=== PATIENT | female | born 1965 | race Caucasian/White ===

== ENCOUNTER 2019-08-12 07:22 | Inpatient (IN) ==
--- NOTE | 2019-07-29 10:05 | EKG Report ---
Test Performed on : 07/29/2019 10:03:17 AM Test Reason : PAT Blood Pressure : / mmHG Vent. Rate : 077 BPM Atrial Rate : 077 BPM P-R Int : 142 ms QRS Dur : 074 ms QT Int : 346 ms P-R-T Axes : 068 067 071 degrees QTc Int : 391 ms Normal sinus rhythm. Possible Left atrial enlargement Borderline ECG No previous ECGs available Confirmed by Antony BERNARDO, Chente Best ([id number]) on 07/30/2019 12:23:04 PM
[2019-07-29 10:17] LABS: URINE SOURCE CLEAN CATCH
[2019-07-29 10:35] LABS: BASO# 0.13 X1000 (0.0-0.2); BASO% 1.8 % (0.0-0.8); EOS# 0.44 X1000 (0.0-0.7); EOS% 6.2 % (0.0-10.0); HEMATOCRIT 46.1 % (37.0-47.0); HEMOGLOBIN 15.3 g/dL (12.0-16.0); IMM GRAN# 0.02 X1000 (0.0-0.04); IMM GRAN% 0.3 % (0.0-0.5); LYMPH% 36.7 % (20.5-51.1); MCH 28.1 PG (27-31); MCHC 33.2 g/dL (33-37); MCV 84.7 FL (81-99); MONO# 0.36 X1000 (0.11-0.59); MONO% 5.1 % (1.7-9.3); MPV 10.4 FL (7.4-10.4); NEUT# 3.53 X1000 (1.4-6.5); NEUT% 49.9 % (42.2-75.2); PLT 273 X1000 (130-400); RBC 5.44 XMIL (4.2-5.4); RDW 13.4 % (11.5-14.5); WBC 7.08 X1000 (4.8-10.8)
[2019-07-29 10:37] LABS: BILIRUBIN URINE NEGATIVE (NEGATIVE); BLOOD URINE SMALL (NEGATIVE); COLOR YELLOW; GLUCOSE URINE NEGATIVE (NEGATIVE); KETONE URINE NEGATIVE (NEGATIVE); LEUKOCYTES URINE LARGE (NEGATIVE); NITRITE URINE NEGATIVE (NEGATIVE); PROTEIN URINE TRACE mg/dL (NEGATIVE); TURBIDITY URINE HAZY (CLEAR); UROBILINOGEN URINE NORMAL (NORMAL)
[2019-07-29 10:52] LABS: INR 0.91; PROTIME 12.3 Seconds (11.0-16.0); PTT 28.3 Seconds (22.3-41.8)
[2019-07-29 11:14] LABS: HEMOGLOBIN A1C 5.5 % (4.8-6.0)
[2019-07-29 11:17] LABS: UR EPITHELIAL CELLS <10 /HPF (<10); URINE BACTERIA 1+ /HPF; URINE RBC <10 /HPF (<10); URINE WBC TNTC /HPF (<10); URINE YEAST NONE SEEN
[2019-07-29 11:18] LABS: URINE SMALL ROUND CELLS RENAL PRESENT
[2019-07-29 11:31] LABS: AGAP 13; ALBUMIN 4.5 g/dL (3.5-5.0); BUN 9 mg/dL (8-22); CALCIUM 9.6 mg/dL (8.8-10.2); CHLORIDE 101 mmol/L (98-107); COSMO 278; CREATININE 0.9 mg/dL (0.5-0.9); ESTIMATED GFR > 60; GLUCOSE 103 mg/dL (70-104); POTASSIUM 4.3 mmol/L (3.5-5.1); SODIUM 140 mmol/L (136-145); TCO2 26 mmol/L (25-35)
[2019-08-12] MEDS ORDERED: DIPRIVAN 1% ONE ×2 (07:42→08:34)
[2019-08-12] MEDS ORDERED: FENTANYL ONE (07:44)
[2019-08-12] MEDS ORDERED: COLACE ONE (07:46)
[2019-08-12] MEDS ORDERED: LYRICA ONE (07:46)
[2019-08-12] MEDS ORDERED: REGLAN ONE (07:46)
[2019-08-12] MEDS ORDERED: PEPCID ONE (07:46)
[2019-08-12] MEDS ORDERED: KEFZOL 1 GM/D5W 1 GM/50 ML IVPB ONE (07:47)
[2019-08-12] MEDS ORDERED: LR 1,000 ML ONE (07:47)
[2019-08-12] MEDS ORDERED: VERSED ONE (07:47)
[2019-08-12] MEDS ORDERED: TRANSDERM-SCOP ONE (07:48)
[2019-08-12] MEDS ORDERED: VALIUM ONE (07:54)
[2019-08-12] MEDS ORDERED: DURAMORPH ONE (09:20)
[2019-08-12] MEDS ORDERED: CYKLOKAPRON 1,000 MG/NS 1,000 MG/100 ML IVPB ONE ×2 (09:20→09:21)
[2019-08-12] MEDS ORDERED: SENSORCAINE 0.25%/EPI 1:200,000 ONE (09:20)
[2019-08-12] MEDS ORDERED: TORADOL ONE (09:20)
[2019-08-12] MEDS ORDERED: VANCOMYCIN ONE (09:20)
[2019-08-12] MEDS ORDERED: SODIUM CHLORIDE 0.9% ONE (09:20)
[2019-08-12] MEDS ORDERED: EXPAREL 1.3% ONE (09:21)
[2019-08-12] MEDS ORDERED: NEOSPORIN G.U. IRRIGANT ONE (09:21)
[2019-08-12] MEDS ORDERED: DECADRON ONE (10:26)
[2019-08-12] MEDS ORDERED: ZOFRAN ONE (10:26)
[2019-08-12] MEDS ORDERED: OFIRMEV 1000 MG/ISOTONIC SOLN 1,000 MG/100 ML BOTTLE ONE (10:26)
[2019-08-12 10:45] LABS: URINE SOURCE CATH
[2019-08-12 10:54] LABS: BILIRUBIN URINE NEGATIVE (NEGATIVE); BLOOD URINE NEGATIVE (NEGATIVE); COLOR YELLOW; GLUCOSE URINE NEGATIVE (NEGATIVE); KETONE URINE NEGATIVE (NEGATIVE); LEUKOCYTES URINE NEGATIVE (NEGATIVE); NITRITE URINE NEGATIVE (NEGATIVE); PROTEIN URINE NEGATIVE (NEGATIVE); SP GRAVITY URINE 1.011; TURBIDITY URINE CLEAR (CLEAR); UROBILINOGEN URINE NORMAL (NORMAL)
[2019-08-12 10:55] LABS: UR EPITHELIAL CELLS <10 /HPF (<10); URINE BACTERIA NEGATIVE /HPF; URINE RBC <10 /HPF (<10); URINE WBC <10 /HPF (<10)
[2019-08-12] MEDS ORDERED: EPHEDRINE ONE (11:01)
[2019-08-12] MEDS ORDERED: MORPHINE IV PRN ×3 (12:30)
[2019-08-12] MEDS ORDERED: ZOFRAN PO PRN (12:30)
[2019-08-12] MEDS ORDERED: OXY IR PO PRN ×2 (12:30)
[2019-08-12] MEDS ORDERED: NS 1,000 ML ONE (12:35)
--- NOTE | 2019-08-12 12:51 | OPERATIVE NOTE ---
PROCEDURE DATE: 08/12/2019 PREOPERATIVE DIAGNOSIS: Degenerative arthritis, left knee. POSTOPERATIVE DIAGNOSIS: Degenerative arthritis, left knee. PROCEDURE PERFORMED: Left total knee arthroplasty with DePuy Attune size 5 narrow posterior stabilized femur, size 4 tibial tray, 7 mm rotating platform tibial insert, and a 32 mm medialized anatomic patella. SURGEON: Nilesh Sahni M.D. MEDICAL WRITER: Holly Medina, who was necessary for proper retraction, manipulation of extremity, and improved efficiency during the case. [employer] SUPERVISOR: Edward Harrison RN. ANESTHESIA: Spinal. IV FLUIDS: 1600 mL of lactated Ringer's. BLOOD LOSS: 35 mL. TOURNIQUET TIME: 80 minutes at 300 mmHg. COMPLICATIONS: None. INDICATION: The patient is a pleasant, 53-year-old female with a chronic history of pain and discomfort of the left knee. Continued pain and discomfort, and her pain is progressive and affects her activities of daily living. Radiographic studies reveal findings consistent with osteoarthritis. Given the patient's continued pain and discomfort, recommendation to proceed with left total knee arthroplasty was offered. Risks and benefits of surgery were explained, including the risks of anesthesia, , bleeding, infection, failure to relieve pain, postoperative stiffness, nerve injury, blood clots, and other imponderables. All questions were answered. The patient wishes to proceed with surgery. DETAILS OF OPERATION: The patient was taken to the operating room and underwent spinal anesthesia. After adequate anesthesia was obtained, she was placed supine on the operating table. The left lower extremity was subsequently prepped and draped in the usual sterile fashion. An Esmarch was used to exsanguinate the left lower extremity. The tourniquet was inflated to 300 mmHg. A standard anterior incision was made with a skin knife. Medial and skin envelopes were developed. Standard medial parapatellar arthrotomy was then performed. Patella fat pad was then excised. Retractor was then placed. Approximately 1 cm anterior to the PCL insertion, a starting reamer was passed. Intramedullary guide with a distal femoral cutting block was pinned in position. Distal femoral cut was then performed in standard fashion. A sizing block was then placed and measured a size 5. A size 5 cutting block was pinned in position. Anterior, posterior, and chamfer cuts were then made. Attention was then turned to the proximal tibia, where using the extramedullary guide, the proximal tibia cutting block was pinned in position, and good alignment confirmed with the alignment nancy. The proximal tibia was then resected. Medial and lateral menisci were excised. A spacer block was then placed and had good soft tissue balance in both flexion and extension. A size 4 tibial tray appeared to be the correct size. This was pinned in position. This was followed by a central reamer and a fin punch. A box cutting guide was pinned on the distal femur. A box cut was then performed. After this had been performed, a trial femoral component was then placed, and 2 lug holes were drilled. A trial tibial insert was then placed and had good soft tissue balancing. The patella was everted and resected in standard fashion. Patella size 35 appeared to be the correct size. Three holes were drilled. The trial patella component was then placed and was carried through range of motion. It had good range of motion, good soft tissue balancing, and good patellofemoral tracking. After this had been performed, the wound was copiously irrigated with antibiotic pulsatile lavage, while vancomycin was mixed in the cement on the back table. Sequential cementing was then performed, first with the tibial tray, and excess cement was removed with a [place], followed by the femoral component, and excess cement was removed with a [place], followed by trial tibial insert in full extension and axial loading was maintained while the cement cured. The patella was cemented in standard fashion. Patella clamp was placed. While the cement was curing, Exparel was placed in the deep soft tissue as well as the subcutaneous tissue. After the cement had cured, peripheral cement was removed with a small osteotome. The 7 mm rotating platform tibial insert appeared to be the correct size. The trial insert was removed. Exparel was placed in the deep posterior capsule. The wound was copiously once again with antibiotic pulsatile lavage. A 7 mm rotating platform tibial insert was then placed. The knee was then carried through range of motion. It had good range of motion, good soft tissue balancing, and good patellofemoral tracking. A 1/8 Hemovac drain was placed and was not sewn in. Final irrigation was then performed with antibiotic pulsatile lavage. Then, #1 Vicryl was used to prepare the arthrotomy, followed by 2-0 Vicryl to repair the subcutaneous tissue, and skin partha. Adaptic, sterile 4 x 4's, Webril, cryo unit, and Sandeep wrap were applied to the right lower extremity. The patient tolerated the procedure well, and was transferred to the recovery room in stable condition. cc: Nilesh Sahni MD
--- NOTE | 2019-08-12 12:56 | Diag Imaging Result Doc PS360 ---
KNEE 1-2 VIEWS-LEFT - 08/12/2019 INDICATION: post op total knee TECHNIQUE: Two views COMPARISON: None FINDINGS: There has been left total knee arthroplasty with patellar resurfacing. No hardware fracture or loosening. Alignment is anatomic. IMPRESSION: No complication. Electronically signed by Hong Emery 08/12/2019 12:54 PM
[2019-08-12] MEDS: TYLENOL PO SCH (17:16)
[2019-08-12] MEDS: KEFZOL 1 GM/D5W 1 GM/50 ML IVPB IV SCH (17:16)
[2019-08-12] MEDS: COLACE PO SCH (21:04)
[2019-08-12] MEDS: PERIDEX MT SCH (21:05)
[2019-08-13] MEDS: TYLENOL PO SCH ×3 (00:19→12:23)
[2019-08-13] MEDS: NS 1,000 ML IV SCH ×2 (00:20→02:20)
[2019-08-13] MEDS: KEFZOL 1 GM/D5W 1 GM/50 ML IVPB IV SCH (02:20)
--- NOTE | 2019-08-13 06:47 | ORTHOPAEDICS PROGRESS NOTE ---
DATE: 08/13/2019 SUBJECTIVE: The patient is a pleasant 53-year-old female who is 1 day status post left total knee arthroplasty. She is currently resting comfortably. PHYSICAL EXAMINATION: The patient's right lower extremity wound looks good. There are no signs or symptoms of infection. Calf is soft. She has active dorsiflexion plantar flexion. She was able to ambulate with Physical Therapy yesterday. LABORATORY: Her labs are pending. IMPRESSION: Postoperative day #1 status post right total knee arthroplasty. PLAN: At this point, patient can be discharged home after physical therapy. She will follow up in the office in 10 to 14 days. I will see her and we will arrange for outpatient physical therapy. cc: Nilesh Sahni MD
[2019-08-13] MEDS ORDERED: LINZESS PO SCH ×2 (07:00→09:00)
[2019-08-13 07:25] LABS: HEMATOCRIT 36.1 % (37.0-47.0); HEMOGLOBIN 11.9 g/dL (12.0-16.0)
[2019-08-13 07:28] VITALS: BP 94/72
[2019-08-13 08:00] LABS: AGAP 11; BUN 12 mg/dL (8-22); CALCIUM 8.8 mg/dL (8.8-10.2); CHLORIDE 107 mmol/L (98-107); COSMO 280; CREATININE 0.7 mg/dL (0.5-0.9); ESTIMATED GFR > 60; GLUCOSE 116 mg/dL (70-104); POTASSIUM 4.1 mmol/L (3.5-5.1); SODIUM 140 mmol/L (136-145); TCO2 22 mmol/L (25-35)
[2019-08-13] MEDS: PERIDEX MT SCH (08:26)
[2019-08-13] MEDS: COLACE PO SCH (08:27)
[2019-08-13] MEDS ORDERED: ASPIRIN PO SCH (09:00)
[2019-08-13] MEDS ORDERED: MAG-OX PO SCH (09:00)
[2019-08-13] MEDS ORDERED: CULTURELLE PO SCH (09:00)
== END 2019-08-13 12:27 | disposition home or self-care (01) | DRG 470 ==
LOC: 4N 07:22 → OR 07:22 → OBSVTOIN 13:18
PROVIDERS: ADMIT Orthopaedic Surgery Adult Reconstructive Orthopaedic Surgery; ATTEND Orthopaedic Surgery Adult Reconstructive Orthopaedic Surgery